=== PATIENT | female | born 1990 | race Caucasian/White ===

== ENCOUNTER 2018-09-14 09:25 | Emergency (ER) | payer OTHER ==
[2018-09-14] MEDS ORDERED: NS 1,000 ML IV ONE (09:39)
[2018-09-14] MEDS ORDERED: KETOROLAC 30 MG/1 ML SDV IVP ONE (09:39)
--- NOTE | 2018-09-14 09:40 | EDPHY ---
H & P Stated Complaint: R lower abd pain x 2 weeks worse x 2 days Source: Patient Exam Limitations: No limitations - Personal History LMP (Females 10-55): IUD In Place - Medical/Surgical History Hx Asthma: No Hx Chronic Respiratory Disease: No Hx Diabetes: No Hx Cardiac Disease: No Hx Renal Disease: No Hx Cirrhosis: No Hx Alcoholism: No Hx HIV/AIDS: No Hx Splenectomy or Spleen Trauma: No Other PMH: vaginal delivery 10/04 - Social History Smoking Status: Never smoked Time Seen by Provider: 09/14/18 09:36 HPI/ROS: HPI: This is a 28-year-old female who presents with Chief Complaint: R lower abd pain x 2 weeks worse x 2 days Location: Periumbilical and now right lower quadrant Quality: Pain Duration: 2 weeks Signs and Symptoms: no fever, no nausea, no vomiting, no hematemesis, no blood in stool, no abdominal bloating, no diarrhea, no back pain, no urinary symptoms , no vaginal bleeding/discharge, no indigestion, no chest pain, no shortness of breath Timing: Worse over the last 2 days Severity: 02/25 Context: Patient is generally healthy, IUD in place and does not have regular menses, presents with 2 week history of periumbilical cramping pain that has now radiated to the right lower quadrant over the last 2 days and has become more moderate and constant in nature. Patient denies any fever, nausea, vomiting, urinary symptoms. She had a bowel movement yesterday but reports that she does not have daily bowel movements. She is passing flatus from below. No history of abdominal surgeries. No history of ovarian cysts. [place] patient. Modifying Factors: None Comment: ROS: A comprehensive 10 system review of systems is otherwise negative aside from elements mentioned in the history of present illness. MEDICAL/SURGICAL/SOCIAL HISTORY: Medical history: Generally healthy. Does not take any regular medications. Surgical history: Vaginal delivery September 2016 Social history: . Nonsmoker. Denies drug use. Family history noncontributory. CONSTITUTIONAL: Nontoxic-appearing polite and cooperative adult white female, awake and alert, no obvious distress HEENT: Atraumatic and normocephalic, PERRL, EOMI. Nares patent; no rhinorrhea; no nasal mucosal edema. Tympanic membranes clear. Oropharynx clear, no exudate and moist pink mucosa. Airway patent. No lymphadenopathy. No meningismus. Cardiovascular: Normal S1/S2, regular rate, regular rhythm, without murmur rub or gallop. PULMONARY/CHEST: Symmetrical and nontender. Clear to auscultation bilaterally. Good air movement. No accessory muscle usage. ABDOMEN: Soft, nondistended, moderate periumbilical and right lower quadrant tenderness, no rebound, no guarding, no peritoneal signs, no masses or organomegaly. No CVAT. Hypoactive bowel sounds heard x4 quadrants. EXTREMITIES: 2/2 pulses, strength 5/5, no deformities, no clubbing, no cyanosis or edema. NEUROLOGICAL: no focal neuro deficits. GCS 15. SKIN: Warm and dry, no erythema. no rash. Good capillary refill. (Estrellita Malik) Constitutional: Initial Vital Signs Temperature (C) 36.5 C 09/14/18 09:28 Heart Rate 87 09/14/18 09:28 Respiratory Rate 16 09/14/18 09:28 Blood Pressure 104/77 09/14/18 09:28 O2 Sat (%) 97 09/14/18 09:28 O2 Delivery Mode Room Air Allergies/Adverse Reactions: No Known Allergies Allergy (Unverified 09/14/18 09:28) Home Medications: Medication Instructions Recorded Ondansetron Odt [Zofran Odt 4 mg 4 mg PO Q4 PRN #12 tab 09/14/18 (*)] oxyCODONE/APAP 5/325 [Percocet 1 - 2 tab PO Q4H PRN #10 tab 09/14/18 5/325 (*)] Medical Decision Making ED Course/Re-evaluation: Vital signs reviewed and stable upon arrival. No systemic signs. IV access and laboratory studies along with urinalysis and CT abdomen and pelvis scan to evaluate for appendicitis ordered Given 1 L normal saline and IV Toradol 30 mg 1025: Urinalysis negative 1030: Labs reviewed. WBC 12 K with left shift. No signs of anemia/platelet dysfunction/KRIS/elevated LFTs/electrolyte imbalance/pancreatitis/. 1145: Called by Radiology. CT abdomen and pelvis scan shows liver that shows periportal edema; liver enzymes are normal and hepatitis panel ordered for thoroughness. IUD shows that the arm is in the uterine wall and malpositioned. Right complex hemorrhagic cyst. Patient has [employer] insurance and will follow up with her OBGYN for repeat ultrasound and removal of IUD. Patient given a prescription for Percocet and Zofran. 1500: Hepatitis panel negative. This patient was seen under the supervision of my secondary supervising physician. I evaluated care for this patient independently. Discussed this patient with Dr. Muniz who did not see the patient. (Estrellita Malik) The patient was evaluated and managed by the physician human resource assistant. I have reviewed this chart and I agree with the findings and plan of care as documented , as indicated by my signature. I am the secondary supervising physician. ( Pao Muniz) Differential Diagnosis: Abdominal pain including but not limited to appendicitis, cholecystitis, gastritis and urinary tract infection. (Estrellita Malik) - Data Points Laboratory Results: Laboratory Results 09/14/18 09:40 09/14/18 09:40 Medications Given: Discontinued Medications Sodium Chloride (Ns) 1,000 mls @ 0 mls/hr IV EDNOW ONE; Wide Open PRN Reason: Protocol Stop: 09/14/18 09:40 Last Admin: 09/14/18 09:49 Dose: 1,000 mls Ketorolac Tromethamine (Toradol) 30 mg IVP EDNOW ONE Stop: 09/14/18 09:40 Last Admin: 09/14/18 09:49 Dose: 30 mg Departure - Departure Disposition: Home, Routine, Self-Care Clinical Impression: Hemorrhagic cyst of right ovary, Malpositioned intrauterine device (IUD), Hepatomegaly Condition: Good Instructions: Ovarian Cyst (ED) Additional Instructions: Please refrain from drinking alcohol excessively. Take Tylenol 650 mg every 4 hours and/or Ibuprofen 600 mg every 8 hours with food as needed for pain. Use Percocet every 6 hours as needed for severe/break through pain. Do not use Tylenol and Percocet concomitantly. Use Zofran every 4-6 hours as needed for nausea, vomiting. Follow up with OBGYN in 5-7 days for IUD removal and repeat ultrasound of right complex cyst. Referrals: PCP Not In,Dictionary [Medical Doctor] - As per Instructions ([facility] in the next 3-5 days) Prescriptions: Ondansetron Odt [Zofran Odt 4 mg (*)] 4 mg PO Q4 PRN #12 tab PRN Reason: Nausea/Vomiting, Use 1st oxyCODONE/APAP 5/325 [Percocet (*)] 1 - 2 tab PO Q4H PRN #10 tab PRN Reason: Pain, Severe
[2018-09-14 10:20] LABS: PLATELET COUNT 222 10^3/uL (150-400)
[2018-09-14] MEDS ORDERED: IOPAMIDOL (ISOVUE-300) 100 ML BTL ONE (10:58)
[2018-09-14 12:16] VITALS: BP 99/74
[2018-09-14 13:47] LABS: HEPATITIS A ANTIBODY IGM (BCH) NEGATIVE (NEGATIVE); HEPATITIS B CORE AB IGM NEGATIVE (NEGATIVE); HEPATITIS B SURFACE ANTIGEN NEGATIVE (NEGATIVE)
[2018-09-14 14:03] LABS: HEPATITIS C ANTIBODY TOTAL NEGATIVE (NEGATIVE)
== END 2018-09-14 12:17 | disposition home or self-care (01) ==
DX: N83.201 Unspecified ovarian cyst, right side (principal); T83.32XA Displacement of intrauterine contraceptive device, initial encounter; R16.0 Hepatomegaly, not elsewhere classified; E86.9 Volume depletion, unspecified
CPT/HCPCS: 96374; G0472; J1885; Q9967